=== PATIENT | female | born 1970 | race Caucasian/White ===

== ENCOUNTER → 2018-09-01 | Outpatient (CLI) | payer OTHER ==
--- NOTE | 2018-09-02 13:36 | MM ---
Reason for exam: screening (asymptomatic). Last mammogram was performed 1 year and 1 month ago. History: Family history of breast cancer in mother and breast cancer in maternal grandmother. Physical Findings: A clinical breast exam by your physician is recommended on an annual basis and results should be correlated with mammographic findings. MG Screening Mammo w CAD Bilateral CC and MLO view(s) were taken. Prior study comparison: August 15, 2017, bilateral MG screening mammo w CAD. August 02, 2016, bilateral foundation screening mammo. The breast tissue is extremely dense which could obscure a lesion on mammography. Focal asymmetry right inferior depth outer aspect. This finding is changed when compared with previous exams. ASSESSMENT: Incomplete: need additional imaging evaluation, BI-RAD 0 RECOMMENDATION: Special view mammogram of the right breast. If lesion persists on supplemental views, image directed ultrasound is recommended. [facility] will attempt to contact patient to return for supplemental views and ultrasound if indicated.
== END ==
LOC: RADMAMWWP 14:06
PROVIDERS: ATTEND Internal Medicine
DX: Z12.31 Encounter for screening mammogram for malignant neoplasm of breast (principal)
CPT/HCPCS: 77067

== ENCOUNTER 2018-09-02 14:49 | Observation (INO) | payer OTHER ==
[2018-09-02] MEDS ORDERED: SODIUM CHLORIDE 0.9% 1,000 ML IV STA (15:04)
--- NOTE | 2018-09-02 15:36 | ED ---
Chest Pain HPI - General Chief Complaint: Chest Pain Stated Complaint: Abdominal pain Time Seen by Provider: 09/02/18 15:03 Source: patient, RN notes reviewed, old records reviewed Mode of arrival: ambulatory Limitations: no limitations - History of Present Illness Initial Comments: This is a 48-year-old female to the ER for evaluation of chest pain. Patient has left-sided chest pain left-sided rib pain and abdominal pain. Patient has a family history of heart disease but no history herself. History of gallbladder removal and appendix removal. Patient denies any recent fever cough or congestion no significant shortness of breath pain is worse with movement. Patient admits to recently starting workout in the diet but denies any injury or trauma. No prior history of cardiac evaluation patient was post cardiac evaluation a few months ago didn't not follow-through, patient is again is pain on and off for over a year no provocation factors MD Complaint: chest pain -: hour(s) Onset: during rest Pain Location: left chest Pain Radiation: back Severity scale (1-10): 6 Quality: sharp Consistency: intermittent, now resolved Improves With: nothing Worsens With: inspiration, palpation, movement Context: other (None) Anginal Symptoms: dyspnea Other Symptoms: other (None) Treatments Prior to Arrival: none - Related Data Home Medications Medication Instructions Recorded Confirmed Ibuprofen [Motrin Ib] 600 mg PO Q6H PRN 09/02/18 09/02/18 Phentermine HCl [Adipex-P] 37.5 mg PO DAILY PRN 09/02/18 09/02/18 Allergies Allergy/AdvReac Type Severity Reaction Status Date / Time prochlorperazine Allergy Swelling Verified 09/02/18 16:46 [From Compazine] Sulfa (Sulfonamide Allergy Anaphylaxis Verified 09/02/18 16:46 Antibiotics) Review of Systems ROS Statement: Those systems with pertinent positive or pertinent negative responses have been documented in the HPI. ROS Other: All systems not noted in ROS Statement are negative. EKG Findings - EKG Comments: EKG Findings:: EKG shows NSR rate of 75 UT 126 QRS 82 QTc 451 Past Medical History Past Medical History: No Reported History History of Any Multi-Drug Resistant Organisms: None Reported Past Surgical History: Appendectomy, Cholecystectomy Past Psychological History: No Psychological Hx Reported Smoking Status: Never smoker Past Alcohol Use History: Occasional Past Drug Use History: None Reported General Exam - General Exam Comments Initial Comments: Left chest, left anterior rib palpitation Limitations: no limitations General appearance: alert, in no apparent distress Head exam: Present: atraumatic, normocephalic, normal inspection Eye exam: Present: normal appearance, PERRL, EOMI. Absent: scleral icterus, conjunctival injection, periorbital swelling ENT exam: Present: normal exam, mucous membranes moist Neck exam: Present: normal inspection. Absent: tenderness, meningismus, lymphadenopathy Respiratory exam: Present: normal lung sounds bilaterally. Absent: respiratory distress, wheezes, rales, rhonchi, stridor Cardiovascular Exam: Present: regular rate, normal rhythm, normal heart sounds. Absent: systolic murmur, diastolic murmur, rubs, gallop, clicks GI/Abdominal exam: Present: soft, normal bowel sounds. Absent: distended, tenderness, guarding, rebound, rigid Extremities exam: Present: normal inspection, full ROM, normal capillary refill. Absent: tenderness, pedal edema, joint swelling, calf tenderness Back exam: Present: normal inspection Neurological exam: Present: alert, oriented X3, CN II-XII intact Psychiatric exam: Present: normal affect, normal mood Skin exam: Present: warm, dry, intact, normal color. Absent: rash Course Vital Signs 09/02/18 09/02/18 09/02/18 14:57 15:21 15:30 Temperature 98.2 F Pulse Rate 75 78 73 Respiratory 16 15 16 Rate Blood Pressure 120/79 123/68 O2 Sat by Pulse 100 100 Oximetry 09/02/18 09/02/18 09/02/18 15:40 15:50 16:00 Temperature Pulse Rate 42 L 60 58 L Respiratory 18 20 19 Rate Blood Pressure 123/68 88/55 88/55 O2 Sat by Pulse 100 100 Oximetry 09/02/18 09/02/18 16:10 17:10 Temperature Pulse Rate 67 Respiratory 16 Rate Blood Pressure 88/55 118/72 O2 Sat by Pulse 100 Oximetry - Reevaluation(s) Reevaluation #1: 09/02/18 17:45 Medical record is reviewed Reevaluation #2: 09/02/18 17:45 Patient is to chest pain although it is improved Reevaluation #5: 09/02/18 17:[address] angios chest and pelvis negative for acute disease Chest Pain MDM - MDM 48 female DEL chest pain left-sided chest pain with the palpitation or movement. The year history of similar pain, patient does have strong family history of heart disease and will admit for cardiac observation Critical Care Time Critical Care Time: Yes Total Critical Care Time: 31 Disposition Clinical Impression: Chest pain Disposition: ADMITTED IP TO THIS HOSP Condition: Undetermined Instructions: Chest Pain (ED) Is patient prescribed a controlled substance at d/c from ED?: No Referrals: Rupal Dixon MD [Primary Care Provider] - 1-2 days
[2018-09-02 16:12] LABS: Basophils % (A) 1 %; Eosinophils # (A) 0.2 k/uL (0-0.7); Eosinophils % (A) 3 %; HCT 41.2 % (34.0-46.0); Lymphocytes # (A) 1.5 k/uL (1.0-4.8); Lymphocytes % (A) 25 %; MCH 33.6 pg (25.0-35.0); MCV 98.9 fL (80.0-100.0); Mean Platelet Volume 7.1; Monocytes # (A) 0.3 k/uL (0-1.0); Monocytes % (A) 5 %; Neutrophils % (A) 65 %; Platelet Count 242 k/uL (150-450); RBC 4.17 m/uL (3.80-5.40); WBC 6.2 k/uL (3.8-10.6)
[2018-09-02 16:20] LABS: ALT 27 U/L (9-52); AST 27 U/L (14-36); Albumin 3.7 g/dL (3.5-5.0); Alkaline Phosphatase 26 U/L (38-126); Anion Gap 7 mmol/L; Blood Urea Nitrogen 12 mg/dL (7-17); Calcium 9.5 mg/dL (8.4-10.2); Carbon Dioxide 26 mmol/L (22-30); Chloride 107 mmol/L (98-107); Glucose 109 mg/dL (74-99); Lipase 96 U/L (23-300); Magnesium 2.1 mg/dL (1.6-2.3); Potassium 3.8 mmol/L (3.5-5.1); Sodium 140 mmol/L (137-145); Total Bilirubin 0.4 mg/dL (0.2-1.3); Total Protein 6.2 g/dL (6.3-8.2)
[2018-09-02 16:23] LABS: Partial Thromboplastin Time 22.8 sec (22.0-30.0); Prothrombin Time 10.2 sec (9.0-12.0)
[2018-09-02 16:26] LABS: Creatine Kinase 56 U/L (30-135)
[2018-09-02 16:37] LABS: Creatine Kinase MB 0.9 ng/mL (0.0-2.4); Troponin I <0.012 ng/mL (0.000-0.034)
[2018-09-02 16:38] LABS: Appearance,Urine Clear (Clear); Bilirubin,Urine Negative (Negative); Blood,Urine Negative (Negative); Color,Urine Yellow; Glucose,Urine (UA) Negative (Negative); Ketones,Urine Negative (Negative); Leukocyte Esterase,Urine Negative (Negative); Nitrite,Urine Negative (Negative); Protein,Urine Negative (Negative); Urobilinogen,Urine <2.0 mg/dL (<2.0)
--- NOTE | 2018-09-02 16:57 | CT ---
EXAMINATION TYPE: CT angio chest with contrast and with 3-D Reconstruction rendering DATE OF EXAM: 09/02/2018 4:35 PM COMPARISON: None HISTORY: Left sided upper Abdominal pain with shortness of breath. CT DLP: 206.3 mGycm Automated exposure control for dose reduction was used. CONTRAST: CTA scan of the thorax is performed with IV Contrast, patient injected with 100 mL of Isovu e 370, pulmonary embolism protocol. 3-D reconstructions. FINDINGS: LUNGS: The lungs are grossly clear, there is no concerning parenchymal mass or nodule identified. T here is no pleural effusion or pneumothorax seen. The tracheobronchial tree is patent. MEDIASTINUM: There is satisfactory enhancement of the pulmonary artery and its branches, there is no CT evidence for pulmonary embolism. There are no greater than 1 cm hilar or mediastinal lymph nodes. No cardiomegaly. No pericardial effusion is seen. OTHER: No additional significant abnormality is seen. IMPRESSION: NO ACUTE PROCESS.
--- NOTE | 2018-09-02 17:02 | CT ---
EXAMINATION TYPE: CT abdomen pelvis w con DATE OF EXAM: 09/02/2018 COMPARISON: None HISTORY: Left sided upper Abdominal pain with shortness of breath. CT DLP: 319.4 mGycm Automated exposure control for dose reduction was used. TECHNIQUE: Helical acquisition of images was performed from the lung bases through the pelvis. CONTRAST: Performed without Oral Contrast and with IV Contrast, patient injected with 100 mL of Isovue 370. FINDINGS: LUNG BASES: No significant abnormality is appreciated. LIVER/GB: No significant abnormality is appreciated. PANCREAS: No significant abnormality is seen. SPLEEN: No significant abnormality is seen. ADRENALS: No significant abnormality is seen. KIDNEYS: No significant abnormality is seen. FREE AIR: No free air is visualized. RETROPERITONEAL ADENOPATHY: None visualized REPRODUCTIVE ORGANS: No significant abnormality is seen URINARY BLADDER: No significant abnormality is seen. PELVIC ADENOPATHY: None visualized. OSSEOUS STRUCTURES: No significant abnormality is seen. BOWEL: No significant abnormality is seen. VASCULATURE: No acute vascular findings, but there is prominence to the caliber of the portal venous system and splenic veins. IMPRESSION: 1) NO ACUTE ABDOMINOPELVIC PROCESS. 2) PROMINENT PORTAL SPLENIC CALIBER NOTED, A NONSPECIFIC FINDING.
[2018-09-02] MEDS ORDERED: ASPIRIN 81 MG PO STA (17:47)
[2018-09-02] MEDS ORDERED: NITROGLYCERIN SL TABS 0.4 MG TAB SUBLINGUAL PRN (17:47)
[2018-09-02] MEDS ORDERED: SODIUM CHLORIDE 0.9% 1,000 ML IV SCH (18:00)
[2018-09-02] MEDS: ACETAMINOPHEN TAB 325 MG TAB PO PRN (21:34)
[2018-09-02 21:39] VITALS: RESP 16
[2018-09-02 22:48] LABS: Creatine Kinase 49 U/L (30-135)
[2018-09-02 23:01] LABS: Creatine Kinase MB 0.7 ng/mL (0.0-2.4); Troponin I <0.012 ng/mL (0.000-0.034)
[2018-09-02] MEDS ORDERED: IBUPROFEN 600 MG TAB PO PRN (23:33)
[2018-09-03 04:02] LABS: Cholesterol 131 mg/dL (<200); HDL Cholesterol 64 mg/dL (40-60); LDL Cholesterol,Calculated 59 mg/dL (0-99); Triglycerides 38 mg/dL (<150)
[2018-09-03 04:26] LABS: Creatine Kinase 46 U/L (30-135)
[2018-09-03 04:40] LABS: Creatine Kinase MB 0.6 ng/mL (0.0-2.4); Troponin I <0.012 ng/mL (0.000-0.034)
[2018-09-03] MEDS ORDERED: ASPIRIN 325 MG TAB PO SCH (09:00)
--- NOTE | 2018-09-03 11:26 | P.CRDCN ---
History of Present Illness History of present illness: This is a pleasant 48-year-old female past medical history significant for chronic nicotine dependence and anxiety. She denies coronary artery disease, hypertension, dyslipidemia or diabetes mellitus. We have been asked to see her in consultation for chest pain. She states for the last year or so she has had a pain in the left thoracic region that is worse with movement of her torso. The pain remained localized to the thoracic region with no radiation to the chest, back, neck, jaw or arm. She denies shortness of breath, dizziness palpitations or diaphoresis. She is using a heat pack to the area now and this works to relieve the pain. When she sit forward for my exam she is wincing in pain fro the movement. EKG reveals sinus mechanism with no acute ST or T wave abnormalities noted. CT angios chest negative for pulmonary embolism. CT abdomen and pelvis negative for an acute process. Laboratory data reviewed, cardiac enzymes negative 3. She takes no daily cardiac medications. At the time of my exam: CONSTITUTIONAL: Denies fever. Denies chills. EYES: Denies blurred vision. Denies vision changes. Denies eye pain. EARS, NOSE, MOUTH & THROAT: Denies headache. Denies sore throat. Denies ear pain. CARDIOVASCULAR: Denies chest pain. Denies shortness of breath. Denies orthopnea. Denies PND. Denies palpitations. RESPIRATORY: Denies cough. GASTROINTESTINAL: Denies abdominal pain. Denies diarrhea. Denies constipation. Denies nausea. Denies vomiting. MUSCULOSKELETAL: Pleuritic pain to left thoracic region. INTEGUMENTARY: Denies pruitis. Denies rash. NEUROLOGIC: Denies numbness. Denies tingling. Denies weakness. PSYCHIATRIC: Denies anxiety. Denies depression. ENDOCRINE: Denies fatigue. Denies weight change. Denies polydipsia. Denies polyurina. GENITOURINARY: Denies burning, hematuria or urgency with micturation. HEMATOLOGIC: Denies history of anemia. Denies bleeding. Blood pressure 112/66 heart rate 71 afebrile maintaining oxygen saturation on room air GENERAL: This is a 48-year-old female in no apparent distress at the time of my examination. HEENT: Head is atraumatic, normocephalic. Pupils are equal, round. Sclerae anicteric. Conjunctivae are clear. Mucous membranes of the mouth are moist. Neck is supple. There is no jugular venous distention. No carotid bruit is heard. LUNGS: Clear to auscultation no wheezes, rales or rhonchi. Tenderness to left thoracic region. HEART: Regular rate and rhythm without murmurs, rubs or gallops. S1 and S2 heard. ABDOMEN: Soft, nontender. Bowel sounds are heard. No organomegaly noted. EXTREMITIES: No evidence of peripheral edema and no calf tenderness noted. VASCULAR: Radial and dorsalis pedis pulses palpated, no evidence of clubbing. NEUROLOGIC: Patient is awake, alert and oriented x3. ASSESSMENT Musculoskeletal chest discomfort Chronic nicotine dependence PLAN An acute coronary event has been ruled out with no EKG evidence of ischemia and negative cardiac enzymes. Obtain 2-D echocardiogram and Doppler study to assess cardiac structure and function. Smoking cessation recommended. Increase activity and use anti-inflammatory medication for pain control. Ongoing medical management. Stable for discharge from a cardiac perspective. Thank you kindly for this consultation. Nurse Practitioner note has been reviewed, I agree with a documented findings and plan of care. Patient was seen and examined. Past Medical History Past Medical History: No Reported History Additional Past Medical History / Comment(s): "approx [address] told me i had emphysema', anxity, panic attack History of Any Multi-Drug Resistant Organisms: None Reported Past Surgical History: Appendectomy, Cholecystectomy Past Anesthesia/Blood Transfusion Reactions: Motion Sickness, Postoperative Nausea & Vomiting (PONV) Additional Past Anesthesia/Blood Transfusion Reaction / Comment(s): clausterphobia Smoking Status: Never smoker - Past Family History Mother Family Medical History: Fibromyalgia, Osteoarthritis (OA), Sleep Apnea/CPAP/ BIPAP, Thyroid Disorder Additional Family Medical History / Comment(s): neuropathy, djd, ddd. Father Family Medical History: CVA/TIA, Diabetes Mellitus, Myocardial Infarction ([place]), Sleep Apnea/CPAP/BIPAP Medications and Allergies Home Medications Medication Instructions Recorded Confirmed Type Ibuprofen [Motrin Ib] 600 mg PO Q6H PRN 09/02/18 09/02/18 History Phentermine HCl [Adipex-P] 37.5 mg PO DAILY PRN 09/02/18 09/02/18 History Allergies Allergy/AdvReac Type Severity Reaction Status Date / Time prochlorperazine Allergy Swelling Verified 09/02/18 16:46 [From Compazine] Sulfa (Sulfonamide Allergy Anaphylaxis Verified 09/02/18 16:46 Antibiotics) Physical Exam Vitals: Vital Signs Temp Pulse Pulse Resp BP BP Pulse Ox 09/03/18 03:59 98.4 F 71 16 112/66 98 09/03/18 03:37 16 09/03/18 00:00 16 09/02/18 23:55 99.1 F 75 16 122/71 99 09/02/18 21:38 98.7 F 71 16 119/74 100 09/02/18 21:10 97.2 F L 72 18 118/67 100 09/02/18 20:00 16 09/02/18 18:26 97.8 F 75 18 116/71 100 09/02/18 17:10 67 16 118/72 100 09/02/18 16:10 88/55 09/02/18 16:00 58 L 19 88/55 100 09/02/18 15:50 60 20 88/55 100 09/02/18 15:40 42 L 18 123/68 09/02/18 15:30 73 16 123/68 09/02/18 15:21 78 15 100 09/02/18 14:57 98.2 F 75 16 120/79 100 Intake and Output 09/02/18 09/02/18 09/03/18 14:59 22:59 06:59 Other: # Voids 2 Weight 54.431 kg Results 09/02/18 15:42 09/02/18 15:42 Cardiac Enzymes 09/02/18 09/02/18 09/02/18 Range/Units 15:42 15:42 22:02 AST 27 (14-36) U/L CK-MB (CK-2) 0.9 0.7 (0.0-2.4) ng/mL Troponin I <0.012 <0.012 (0.000-0.034) ng/mL 09/03/18 Range/Units 03:19 AST (14-36) U/L CK-MB (CK-2) 0.6 (0.0-2.4) ng/mL Troponin I <0.012 (0.000-0.034) ng/mL Coagulation 09/02/18 Range/Units 15:42 PT 10.2 (9.0-12.0) sec APTT 22.8 (22.0-30.0) sec Lipids 09/03/18 Range/Units 03:19 Triglycerides 38 (<150) mg/dL Cholesterol 131 (<200) mg/dL HDL Cholesterol 64 H (40-60) mg/dL CBC 09/02/18 Range/Units 15:42 WBC 6.2 (3.8-10.6) k/uL RBC 4.17 (3.80-5.40) m/uL Hgb 14.0 (11.4-16.0) gm/dL Hct 41.2 (34.0-46.0) % Plt Count 242 (150-450) k/uL Comprehensive Metabolic Panel 09/02/18 Range/Units 15:42 Sodium 140 (137-145) mmol/L Potassium 3.8 (3.5-5.1) mmol/L Chloride 107 (98-107) mmol/L Carbon Dioxide 26 (22-30) mmol/L BUN 12 (7-17) mg/dL Creatinine 0.53 (0.52-1.04) mg/dL Glucose 109 H (74-99) mg/dL Calcium 9.5 (8.4-10.2) mg/dL AST 27 (14-36) U/L ALT 27 (9-52) U/L Alkaline Phosphatase 26 L (38-126) U/L Total Protein 6.2 L (6.3-8.2) g/dL Albumin 3.7 (3.5-5.0) g/dL Current Medications Generic Name Dose Route Start Last Admin Trade Name Freq PRN Reason Stop Dose Admin Acetaminophen 650 mg 09/02/18 19:50 09/02/18 21:34 Tylenol Tab PO 650 mg Q6HR PRN Administration Fever and/ or Pain Aspirin 325 mg 09/03/18 09:00 Aspirin PO DAILY JACEK Sodium Chloride 1,000 mls @ 100 mls/hr 09/02/18 18:00 Saline 0.9% IV .Q10H JACEK Ibuprofen 600 mg 09/02/18 23:33 09/02/18 23:47 Motrin PO 600 mg Q6H PRN Administration Pain Nitroglycerin 0.4 mg 09/02/18 17:47 Nitrostat SUBLINGUAL Q5M PRN Chest Pain Intake and Output 09/02/18 09/02/18 09/03/18 14:59 22:59 06:59 Other: # Voids 2 Weight 54.431 kg Patient Weight 09/03/18 06:59 Weight 54.431 kg 09/02/18 15:42 09/02/18 15:42
[2018-09-03 12:18] VITALS: BP 113/71; PULSE 74; TEMP 98.4
--- NOTE | 2018-09-03 14:07 | ECHOF ---
Referral Reason:cp, pleuritic MEASUREMENTS -------- HEIGHT: 162.6 cm WEIGHT: 54.4 kg BP: 112/66 RVIDd: 2.5 cm (< 3.3) IVSd: 0.7 cm (0.6 - 1.1) LVIDd: 4.0 cm (3.9 - 5.3) LVPWd: 0.8 cm (0.6 - 1.1) IVSs: 1.1 cm LVIDs: 3.0 cm LVPWs: 1.3 cm LA Diam: 2.6 cm (2.7 - 3.8) LAESV Index (A-L): 12.27 ml/m Ao Diam: 2.7 cm (2.0 - 3.7) AV Cusp: 2.0 cm (1.5 - 2.6) MV EXCURSION: 18.482 mm (> 18.000) MV EF SLOPE: 141 mm/s (70 - 150) EPSS: 0.5 cm MV E Jose Francisco: 0.76 m/s MV DecT: 273 ms MV A Jose Francisco: 0.58 m/s MV E/A Ratio: 1.31 FINDINGS -------- Sinus rhythm. This was a technically good study. The left ventricular size is normal. Left ventricular wall thickness is normal. Overall left vent ricular systolic function is normal with, an EF between 55 - 60 %. The right ventricle is normal in size. Normal LA size by volume 22+/-6 ml/m2. The right atrium is normal in size. The aortic valve is trileaflet and appears structurally normal. The mitral valve is normal. The tricuspid valve appears structurally normal. There is no pulmonic regurgitation present. The aortic root size is normal. Normal inferior vena cava with normal inspiratory collapse consistent with estimated right atrial pre ssure of 5 mmHg. There is no pericardial effusion. CONCLUSIONS -------- 1. Sinus rhythm. 2. This was a technically good study. 3. The left ventricular size is normal. 4. Left ventricular wall thickness is normal. 5. Overall left ventricular systolic function is normal with, an EF between 55 - 60 %. 6. The right ventricle is normal in size. 7. Normal LA size by volume 22+/-6 ml/m2. 8. The right atrium is normal in size. 9. The aortic valve is trileaflet and appears structurally normal. 10. The mitral valve is normal. 11. The tricuspid valve appears structurally normal. 12. There is no pulmonic regurgitation present. 13. The aortic root size is normal. 14. Normal inferior vena cava with normal inspiratory collapse consistent with estimated right atrial pressure of 5 mmHg. 15. There is no pericardial effusion. [employer]: Mary Huff RDCS
[2018-09-03] MEDS: ACETAMINOPHEN TAB 325 MG TAB PO PRN (15:38)
--- NOTE | 2018-09-03 23:40 | P.HPIM ---
History of Present Illness This is a pleasant 48 years old female with past medical history of appendectomy , and cholecystectomy. She is currently smoker. No history of coronary artery disease, hypertension or diabetes. She presents with chest pain. Patient states that over the last 3 days she was having left lower chest pain, below her left breast and behind the rib cage, but became severe yesterday prompted her to come to emergency room. Which was nonspecific non-radiating pain. I saw the patient she was told me her pain is completely resolved and now is 0/ 10 in severity. no Dyspnea. No other chest pain or discomfort. No abdominal pain. No change in urine or bowel habits. No fever. No nausea vomiting. And she is walking around with no difficulty. Patient has been evaluated by cardiology team and echocardiogram was ordered. Patient also was smokes station however cardiology team cleared the patient for discharge. In the emergency room patient had negative CT of the abdomen/pelvis. Her CTPA is negative for PE. CBC, CMP and coagulation profile was unremarkable. Review of Systems CONSTITUTIONAL: No fever, no malaise, no fatigue. HEENT: No recent visual problems or hearing problems. Denied any sore throat. CARDIOVASCULAR: No orthopnea, PND, no palpitations, no syncope. PULMONARY: No shortness of breath, no cough, no hemoptysis. GASTROINTESTINAL: No diarrhea, no nausea, no vomiting, no abdominal pain. Normoactive bowel sounds. NEUROLOGICAL: No headaches, no weakness, no numbness. HEMATOLOGICAL: Denies any bleeding or petechiae. GENITOURINARY: Denies any burning micturition, frequency, or urgency. MUSCULOSKELETAL/RHEUMATOLOGICAL: Denies any joint pain, swelling, or any muscle pain. ENDOCRINE: Denies any polyuria or polydipsia. Past Medical History Past Medical History: No Reported History Additional Past Medical History / Comment(s): "approx [address] told me i had emphysema', anxity, panic attack History of Any Multi-Drug Resistant Organisms: None Reported Past Surgical History: Appendectomy, Cholecystectomy Past Anesthesia/Blood Transfusion Reactions: Motion Sickness, Postoperative Nausea & Vomiting (PONV) Additional Past Anesthesia/Blood Transfusion Reaction / Comment(s): clausterphobia Smoking Status: Never smoker - Past Family History Mother Family Medical History: Fibromyalgia, Osteoarthritis (OA), Sleep Apnea/CPAP/ BIPAP, Thyroid Disorder Additional Family Medical History / Comment(s): neuropathy, djd, ddd. Father Family Medical History: CVA/TIA, Diabetes Mellitus, Myocardial Infarction ([place]), Sleep Apnea/CPAP/BIPAP Medications and Allergies Home Medications Medication Instructions Recorded Confirmed Type Phentermine HCl [Adipex-P] 37.5 mg PO DAILY PRN 09/02/18 09/02/18 History Acetaminophen Tab [Tylenol] 650 mg PO Q6HR PRN #15 tab 09/03/18 Rx Aspirin 81 mg PO DAILY #30 tab 09/03/18 Rx traMADol HCL [Ultram] 50 mg PO Q12HR PRN 2 Days #3 tab 09/03/18 Rx Allergies Allergy/AdvReac Type Severity Reaction Status Date / Time prochlorperazine Allergy Swelling Verified 09/02/18 16:46 [From Compazine] Sulfa (Sulfonamide Allergy Anaphylaxis Verified 09/02/18 16:46 Antibiotics) Physical Exam Vitals: Vital Signs Temp Pulse Pulse Resp BP BP Pulse Ox 09/03/18 12:17 98.4 F 74 113/71 100 09/03/18 08:00 98.1 F 88 16 113/69 97 09/03/18 03:59 98.4 F 71 16 112/66 98 09/03/18 03:37 16 09/03/18 00:00 16 09/02/18 23:55 99.1 F 75 16 122/71 99 09/02/18 21:38 98.7 F 71 16 119/74 100 09/02/18 21:10 97.2 F L 72 18 118/67 100 09/02/18 20:00 16 09/02/18 18:26 97.8 F 75 18 116/71 100 09/02/18 17:10 67 16 118/72 100 09/02/18 16:10 88/55 09/02/18 16:00 58 L 19 88/55 100 09/02/18 15:50 60 20 88/55 100 09/02/18 15:40 42 L 18 123/68 09/02/18 15:30 73 16 123/68 09/02/18 15:21 78 15 100 09/02/18 14:57 98.2 F 75 16 120/79 100 Intake and Output 09/02/18 09/03/18 09/03/18 22:59 06:59 14:59 Other: # Voids 2 GENERAL: The patient is alert and oriented x3, not in any acute distress. Well developed, well nourished. HEENT: Pupils are round and equally reacting to light. EOMI. No scleral icterus. No conjunctival pallor. Normocephalic, atraumatic. No pharyngeal erythema. No thyromegaly. CARDIOVASCULAR: S1 and S2 present. No murmurs, rubs, or gallops. PULMONARY: Chest is clear to auscultation, no wheezing or crackles. ABDOMEN: Soft, nontender, nondistended, normoactive bowel sounds. No palpable organomegaly. MUSCULOSKELETAL: No joint swelling or deformity. EXTREMITIES: No cyanosis, clubbing, or pedal edema. NEUROLOGICAL: Gross neurological examination did not reveal any focal deficits. SKIN: No rashes. Results CBC & Chem 7: 09/02/18 15:42 09/02/18 15:42 Labs: Abnormal Lab Results - Last 24 Hours (Table) 09/02/18 09/03/18 Range/Units 15:42 03:19 Glucose 109 H (74-99) mg/dL Alkaline Phosphatase 26 L (38-126) U/L Total Protein 6.2 L (6.3-8.2) g/dL HDL Cholesterol 64 H (40-60) mg/dL Thrombosis Risk Factor Assmnt - Choose All That Apply Each Factor Represents 1 point: Age 41-60 years Thrombosis Risk Factor Assessment Total Risk Factor Score: 1 Thrombosis Risk Factor Assessment Level: Low Risk Assessment and Plan Assessment: Chest pain, cardiology evaluated the patient cleared patient for discharge. resolved Current cigarette smoker, patient is counseled Plan: Labs and medication were reviewed.. Continue same treatment. Continue with symptomatic treatment. Resume home medication. Monitor lytes and vitals. DVT and GI prophylaxis. Further recommendations of the clinical course of the patient DVT prophylaxis: Subcutaneous heparin GI prophylaxis: pepcid
--- NOTE | 2018-09-03 23:42 | P.DS ---
Providers Date of admission: 09/02/18 17:47 Attending physician: Vinh Alejandro Consults: 09/02/18 17:47 Consult Physician Urgent Consulting Provider: Santos Aguilera Consult Reason/Comments: cp Do you want consulting provider notified?: Yes Primary care physician: Destiny Goldsmith [facility] Course: Please see the H&P from today for more details pt was admitted for left side chest pain , below her left breast. completely resolved prior to discharge pt was cleared by cardiology team for discharge Pt was instructed about the problems and management plan and Pt verbalized understanding and acceptance Pt is found stable and can be discharged to the community but needs follow up as outpt Patient Condition at Discharge: Undetermined Plan - Discharge Summary Discharge Rx Participant: No New Discharge Prescriptions: New Acetaminophen Tab [Tylenol] 650 mg PO Q6HR PRN #15 tab PRN Reason: Fever And/ Or Pain Aspirin 81 mg PO DAILY #30 tab traMADol HCL [Ultram] 50 mg PO Q12HR PRN 2 Days #3 tab PRN Reason: Pain Control Continue Phentermine HCl [Adipex-P] 37.5 mg PO DAILY PRN PRN Reason: WEIGHT LOSS Discontinued Ibuprofen [Motrin Ib] 600 mg PO Q6H PRN PRN Reason: Pain Discharge Medication List Phentermine HCl [Adipex-P] 37.5 mg PO DAILY PRN 09/02/18 [History] Acetaminophen Tab [Tylenol] 650 mg PO Q6HR PRN #15 tab 09/03/18 [Rx] Aspirin 81 mg PO DAILY #30 tab 09/03/18 [Rx] traMADol HCL [Ultram] 50 mg PO Q12HR PRN 2 Days #3 tab 09/03/18 [Rx] Follow up Appointment(s)/Referral(s): Rupal Dixon MD [Primary Care Provider] - 1-2 days Neeraj Baez MD [STAFF PHYSICIAN] - 09/12/18 1:30 pm Patient Instructions/Handouts: Chest Pain (ED) Activity/Diet/Wound Care/Special Instructions: cardiac diet activity is limited till you see your doctor Discharge Disposition: HOME SELF-CARE
== END 2018-09-03 15:55 | disposition home or self-care (01) ==
LOC: EC 14:49 → 1SOBS 17:47
PROVIDERS: ADMIT Hospitalist; ATTEND Hospitalist
DX: R07.89 Other chest pain (principal); R10.9 Unspecified abdominal pain; R07.81 Pleurodynia; R06.00 Dyspnea, unspecified; F17.210 Nicotine dependence, cigarettes, uncomplicated; M54.6 Pain in thoracic spine; F41.9 Anxiety disorder, unspecified; F41.0 Panic disorder [episodic paroxysmal anxiety]; Z88.8 Allergy status to other drugs, medicaments and biological substances; Z88.2 Allergy status to sulfonamides; Z79.82 Long term (current) use of aspirin; Z90.49 Acquired absence of other specified parts of digestive tract; Z82.61 Family history of arthritis; Z82.49 Family history of ischemic heart disease and other diseases of the circulatory system; Z83.49 Family history of other endocrine, nutritional and metabolic diseases; Z83.3 Family history of diabetes mellitus
CPT/HCPCS: 96360; 96361; 99291; 36415; 93005; 93306; 83880; 80061; 80053; 82550 ×2; 82553 ×2; 83690; 83735; 84484 ×2; 85025; 85610; 85730; 81003; 71275; 74177; G0378 ×2; Q9967

== ENCOUNTER → 2018-09-12 | Outpatient (CLI) | payer OTHER ==
--- NOTE | 2018-09-15 07:58 | MM ---
Reason for exam: additional evaluation requested from abnormal screening. Last mammogram was performed less than 1 month ago. History: Family history of breast cancer in mother and breast cancer in maternal grandmother. Physical Findings: Nurse did not find any significant physical abnormalities on exam. MG Work Up Mamm w CAD RT Spot compression CC, spot compression MLO, and ML view(s) were taken of the right breast. Prior study comparison: September 01, 2018, bilateral MG screening mammo w CAD. August 15, 2017, bilateral MG screening mammo w CAD. There is no discrete abnormality including area of concern. These results were verbally communicated with the patient and result sheet given to the patient on 09/12/18. ASSESSMENT: Probably benign, BI-RAD 3 RECOMMENDATION: Follow-up diagnostic mammogram of the right breast in 6 months.
== END | disposition home or self-care (01) ==
LOC: RADMAMWWP 14:18
PROVIDERS: ATTEND Internal Medicine
DX: R92.8 Other abnormal and inconclusive findings on diagnostic imaging of breast (principal)
CPT/HCPCS: 77065

== ENCOUNTER → 2019-03-17 | Outpatient (CLI) | payer OTHER ==
--- NOTE | 2019-03-18 07:49 | MM ---
Reason for exam: follow-up at short interval from prior study. Last mammogram was performed 6 months ago. History: Family history of breast cancer in mother and breast cancer in maternal grandmother. Physical Findings: Nurse did not find any significant physical abnormalities on exam. MG 3D Diag Mammo W/Cad RT CC and MLO view(s) were taken of the right breast. Prior study comparison: September 12, 2018, right breast MG work up mamm w CAD RT. September 01, 2018, bilateral MG screening mammo w CAD. The breast tissue is heterogeneously dense. This may lower the sensitivity of mammography. There is no discrete abnormality. These results were verbally communicated with the patient and result sheet given to the patient on 03/17/19. ASSESSMENT: Negative, BI-RAD 1 RECOMMENDATION: Return to routine screening mammogram schedule for both breasts. Back on schedule for September 2019.
== END | disposition home or self-care (01) ==
LOC: RADMAMWWP 03-13 13:19
PROVIDERS: ATTEND Family Medicine
DX: R92.8 Other abnormal and inconclusive findings on diagnostic imaging of breast (principal)
CPT/HCPCS: 77061; 77065